=== PATIENT | female | born 1985 | race Caucasian/White ===

== ENCOUNTER 2020-06-17 20:35 | Emergency (ER) | payer OTHER ==
[2020-06-17 22:42] LABS: Absolute Lymphocytes (CBC) 4.1 K/uL (0.7-4.9); Basophils % 0.9 % (0-1.3); Hematocrit 39.9 % (36.0-45.0); Lymphocytes % 27.7 % (15.3-44.8); MPV 8.1 fL (7.6-11.3); RBC Red Blood Cell Count 4.73 M/uL (3.86-4.86)
[2020-06-17 22:59] LABS: Protime INR 0.92
[2020-06-17 23:15] LABS: ALT/SGPT 13 U/L (12-78); AST/SGOT 10 U/L (15-37); Albumin 3.7 g/dL (3.4-5.0); Alkaline Phosphatase 82 U/L (45-117); BUN Blood Urea Nitrogen 20 mg/dL (7-18); Bicarbonate 24 mmol/L (21-32); Bilirubin Total 0.3 mg/dL (0.2-1.0); Glucose Level 92 mg/dL (74-106); Potassium 3.9 mmol/L (3.5-5.1); Protein, Total 7.5 g/dL (6.4-8.2); Sodium Level 141 mmol/L (136-145); Troponin (Emerg Dept Use Only) < 0.02 ng/mL (0.0-0.045)
[2020-06-17] MEDS ORDERED: MORPHINE 4 MG/ML SYR ONE (23:49)
[2020-06-17] MEDS ORDERED: ONDANSETRON 4 MG/2 ML VIAL ONE (23:49)
--- NOTE | 2020-06-18 00:36 | ER ---
Nurse's Notes [facility] Name: Vivien Oviedo Age: 34 yrs Sex: Female : 1985 Arrival Date: 06/17/2020 Time: 20:39 Bed 25 Private MD: Diagnosis: Ocular pain, right eye;Unqualified visual loss, right eye, normal vision left eye Presentation: 06/17 20:44 Chief complaint: Patient states: Right eye redness, drainage since Wednesday. Seen by eye ll1 doctor today, sent for further eval. Coronavirus screen: Patient denies a cough. Patient denies shortness of breath or difficulty breathing. Patient denies measured and/or subjective temperature greater than 100.4F prior to today's visit. Patient denies travel on a cruise ship or to a country the [facility] currently lists as an affected area. Patient denies contact with known and/or suspected case of COVID-19. Proceed with normal triage. Ebola Screen: Patient denies travel to an Ebola-affected area in the 21 days before illness onset. Mechanism of Injury: No Mechanism of Injury. The patient denies any loss of vision. Initial Sepsis Screen: Does the patient meet any 2 criteria? No. Patient's initial sepsis screen is negative. Risk Assessment: Do you want to hurt yourself or someone else? Patient reports no desire to harm self or others. Onset of symptoms was June 14, 2020. 20:44 Method Of Arrival: Ambulatory ll1 20:44 Acuity: DIAMANTE 3 ll1 21:00 Initial Sepsis Screen: Does the patient have a suspected source of infection? No. vc Patient's initial sepsis screen is negative. [employer]: 21:00 LMP N/A - Tubes tied. vc Historical: - Allergies: 20:43 No Known Allergies; ll1 - Home Meds: 22:42 gabapentin 300 mg oral cap 1 cap 3 times per day [Active]; divalproex 500 mg oral Tb24 vc 1 tab twice a day for Depression associated with Bipolar Disorder [Active]; sertraline 100 mg oral tab 1 tab once daily [Active]; - PMHx: 20:43 Bipolar disorder; Depression; ll1 22:43 Seizures; (stated with high fever); vc - PSHx: 20:43 Appendectomy; ; ll1 - Immunization history:: Flu vaccine is not up to date. - Social history:: Smoking status: Patient reports the use of cigarette tobacco products, smokes one-half pack cigarettes per day, Patient/guardian denies using alcohol, street drugs. Screenin:00 Abuse screen: Denies threats or abuse. Nutritional screening: No deficits noted. vc Tuberculosis screening: No symptoms or risk factors identified. Fall Risk None identified. Assessment: 20:55 General: Appears in no apparent distress. uncomfortable, Behavior is calm, cooperative, vc appropriate for age. Pain: Complains of pain in right eye Pain does not radiate. Pain currently is 8 out of 10 on a pain scale. Quality of pain is described as sharp, squeezing, Pain began 2-3 days ago. Is continuous, Alleviated by cold application. Neuro: Level of Consciousness is awake, alert, obeys commands, Oriented to person, place, time, situation, Appropriate for age. Neuro: Reports. Cardiovascular: Capillary refill < 3 seconds Patient's skin is warm and dry. Cardiovascular: Reports. Respiratory: Airway is patent Respiratory effort is even, unlabored, Respiratory pattern is regular, symmetrical. GI: No signs and/or symptoms were reported involving the gastrointestinal system. : No signs and/or symptoms were reported regarding the genitourinary system. EENT: Eyes Sclera/Cornea are reddened in outer aspect of conjuctiva of right eye, iris of right eye and inner aspect of conjuctiva of right eye Reports blindness and pain to right eye. 22:00 Reassessment: Patient appears in no apparent distress at this time. Patient and/or vc family updated on plan of care and expected duration. Pain level reassessed. Patient is alert, oriented x 3, equal unlabored respirations, skin warm/dry/pink. Patient states symptoms have not improved. 22:30 Reassessment: Patient states on night she started to swell up, "my feet looked vc like I was 9 months ." ER provider notified. No signs of swelling noted at this time. 23:00 Reassessment: Patient appears in no apparent distress at this time. Patient and/or vc family updated on plan of care and expected duration. Pain level reassessed. Patient is alert, oriented x 3, equal unlabored respirations, skin warm/dry/pink. Patient states symptoms have not improved. 23:43 Reassessment: Patient returned from CT via wheelchair. vc 06/18 02:13 Reassessment: report called to Lauren MCKEON at [facility] ED. bb 02:44 Reassessment: [facility] HERE TO TRANSFER PATIENT TO [facility], PATIENT ALERT AND vc ORIENTED, AMBULATORY TO STRETCHER. Vital Signs: 06/17 20:44 BP 123 / 72; Pulse 88; Resp 18; Temp 98.4; Pulse Ox 96% ; Pain 9/10; ll1 22:30 BP 118 / 96; Pulse 89; Resp 18; Pulse Ox 97% on R/A; vc 23:00 BP 113 / 92; Pulse 86; Resp 18; Pulse Ox 100% on R/A; vc 06/18 00:00 BP 116 / 70; Pulse 82; Resp 19; Pulse Ox 97% on R/A; vc 01:00 BP 114 / 64; Pulse 82; Resp 19; Pulse Ox 98% ; vc ED Course: 06/17 20:39 Patient arrived in ED. cl3 20:44 Arm band placed on Patient placed in an exam room, on a stretcher. ll1 20:46 Triage completed. ll1 20:50 Beti Tavarez, LINDA is Primary Nurse. vc 21:00 Patient has correct armband on for positive identification. Call light in reach. Pulse vc ox on. NIBP on. 21:16 Davis Collins PA is PHCP. [facility] 21:16 Jacob Almaguer MD is Attending Physician. [facility] 06/18 00:01 CT Head Brain wo Cont In Process Unspecified. EDMS 00:02 Orbits W/Cont In Process Unspecified. EDMS 01:25 initiated transfer with [facility] spike with Charu Chappell. mw2 01:57 transfer accepted to [facility] ER by Charu Chappell. Accepting Dr. Gamino. mw2 02:43 No provider procedures requiring assistance completed. Patient transferred, IV remains vc in place. Administered Medications: 06/17 23:55 Drug: morphine 4 mg Route: IVP; Site: left antecubital; vc 06/18 01:39 Follow up: Response: No adverse reaction; Pain is decreased vc 06/17 23:55 Drug: Zofran (Ondansetron) 4 mg Route: IVP; Site: left antecubital; vc 06/18 01:39 Follow up: Response: No adverse reaction vc 01:39 Drug: Thurston 10 mg-325 mg 1 tabs Route: PO; vc 01:40 Follow up: Response: No adverse reaction vc Outcome: 00:35 Discharge ordered by MD. archer 02:03 ER care complete, transfer ordered by MD. archer 02:43 Transferred by ground EMS to [facility]. 02:43 Condition: good 02:43 Instructed on the need for transfer. 02:45 Patient left the ED. vc Signatures: Dispatcher [employer] EDMS Davis Collins PA PA jmm Ballard, Brenda, RN RN Edwardo Vasquez2 Tamara Dozier cl3 Beti Tavarez RN RN vc Lewis, Lynsay, RN RN ll1 Corrections: (The following items were deleted from the chart) 02:11 01:25 initiated transfer with [facility] spike with Charu lucas2 mw2
--- NOTE | 2020-06-18 00:36 | EDPHYS ---
Physician Documentation [facility] Name: Vivien Oviedo Age: 34 yrs Sex: Female : 1985 Arrival Date: 06/17/2020 Time: 20:39 Bed 25 Private MD: ED Physician Jacob Almaguer HPI: 06/17 21:18 This 34 yrs old Female presents to ER via Ambulatory with complaints of Eye jmm Pain. 21:18 The patient is experiencing double vision, pain. Onset: The symptoms/episode jmm began/occurred gradually, 1.5 week(s) ago. Duration: the symptoms are continuous. Aggravated by nothing. Alleviated by nothing. The patient has not experienced similar symptoms in the past. This is a 34 year old female with a history of bipolar depression, epilepsy that presents to the ED with complaints of right eye pain with vision loss. Patient states the eye irritation began this past Wednesday with increased pain beginning yesterday. Patient states she awoke this morning with complete vision loss to the right eye. Patient was evaluated by opthalmology (Dr. Chris Pagan) whom recommended further evaluation at [facility]. Patient also complains of a right sided headache which began approx 1.5 weeks ago. . DIE REAMER: 21:00 LMP N/A - Tubes tied. vc Historical: - Allergies: 20:43 No Known Allergies; ll1 - Home Meds: 22:42 gabapentin 300 mg oral cap 1 cap 3 times per day [Active]; divalproex 500 mg oral Tb24 vc 1 tab twice a day for Depression associated with Bipolar Disorder [Active]; sertraline 100 mg oral tab 1 tab once daily [Active]; - PMHx: 20:43 Bipolar disorder; Depression; ll1 22:43 Seizures; (stated with high fever); vc - PSHx: 20:43 Appendectomy; ; ll1 - Immunization history:: Flu vaccine is not up to date. - Social history:: Smoking status: Patient reports the use of cigarette tobacco products, smokes one-half pack cigarettes per day, Patient/guardian denies using alcohol, street drugs. ROS: 21:18 Constitutional: Negative for fever, chills, and weight loss, Cardiovascular: Negative jmm for chest pain, palpitations, and edema, Respiratory: Negative for shortness of breath, cough, wheezing, and pleuritic chest pain. 21:18 Eyes: Positive for itching, pain. 21:18 Neuro: Positive for headache. 21:18 All other systems are negative. Exam: 21:18 Constitutional: This is a well developed, well nourished patient who is awake, alert, jmm and in no acute distress. Head/Face: atraumatic. 21:18 ENT: Moist Mucus Membranes Neck: Trachea midline, Supple Chest/axilla: Normal chest wall appearance and motion. Cardiovascular: Regular rate and rhythm. No edema appreciated Respiratory: Normal respirations, no respiratory distress appreciated Abdomen/GI: Non distended, soft Back: Normal ROM Skin: General appearance color normal MS/ Extremity: Moves all extremities, no obvious deformities appreciated, no edema noted to the lower extremities Neuro: Awake and alert, normal gait Psych: Behavior is normal, Mood is normal, Patient is cooperative and pleasant 21:18 Eyes: Conjunctiva: injected, in the right eye. 21:18 Eyes: Extraocular movements: intact throughout, Visual byrd: Vital Signs: 20:44 BP 123 / 72; Pulse 88; Resp 18; Temp 98.4; Pulse Ox 96% ; Pain 9/10; ll1 22:30 BP 118 / 96; Pulse 89; Resp 18; Pulse Ox 97% on R/A; vc 23:00 BP 113 / 92; Pulse 86; Resp 18; Pulse Ox 100% on R/A; vc 06/18 00:00 BP 116 / 70; Pulse 82; Resp 19; Pulse Ox 97% on R/A; vc 01:00 BP 114 / 64; Pulse 82; Resp 19; Pulse Ox 98% ; vc MDM: 06/17 21:18 Patient medically screened. [facility] 06/18 00:33 Data reviewed: vital signs, nurses notes. Counseling: I had a detailed discussion with [facility] the patient and/or guardian regarding: the historical points, exam findings, and any diagnostic results supporting the discharge/admit diagnosis, lab results, radiology results, the need to transfer to another facility, for higher level of care, [facility] does not immediately have the required specialist. Refusal of service: The patient/guardian displays adequate decision making capability and despite a detailed discussion of alternatives, benefits, risks, and consequences refuses: Admission to the hospital for further work-up and treatment. ED course: Patient was advised not being transferred could result in permanent blindness to the right eye. Patient appears able to make rational decisions. . 01:46 ED course: Patient reconsidered transfer. Dr. Dunne discussed the patient with Dr. gianni Watson whom accepted transfer. . 01:57 ED course: accepted by dr. Gamino. [facility] 06/17 21:41 Order name: CBC with Diff; Complete Time: 22:49 [facility] 06/17 21:41 Order name: CMP; Complete Time: 23:27 [facility] 06/17 21:41 Order name: PT-INR; Complete Time: 23:06 [facility] 06/17 21:41 Order name: Troponin (emerg Dept Use Only); Complete Time: 23:27 [facility] 06/18 00:07 Order name: Urine Dipstick--Ancillary (enter results); Complete Time: 00:58 [facility] 06/18 00:07 Order name: Urine --Ancillary (enter results); Complete Time: 00:58 [facility] 06/17 21:41 Order name: Saline Lock; Complete Time: 22:33 [facility] 06/17 21:42 Order name: CT Head Brain wo Cont [facility] 06/17 21:46 Order name: Orbits W/Cont [facility] 06/17 22:50 Order name: Urine Test (obtain specimen); Complete Time: 00:05 [facility] Administered Medications: 06/17 23:55 Drug: morphine 4 mg Route: IVP; Site: left antecubital; vc 06/18 01:39 Follow up: Response: No adverse reaction; Pain is decreased 06/17 23:55 Drug: Zofran (Ondansetron) 4 mg Route: IVP; Site: left antecubital; vc 06/18 01:39 Follow up: Response: No adverse reaction vc 01:39 Drug: Kerrick 10 mg-325 mg 1 tabs Route: PO; vc 01:40 Follow up: Response: No adverse reaction vc Disposition: 03:51 Co-signature as Attending Physician, Jacob Almaguer MD. ma2 Disposition: 06/18/20 02:03 Transfer ordered to [facility]. Diagnosis are Ocular pain, right eye, Unqualified visual loss, right eye, normal vision left eye. - Reason for transfer: Higher level of care. - Accepting physician is Hanny. - Condition is Stable. - Problem is new. - Symptoms are unchanged. Signatures: Dispatcher [employer] EDMS Davis Collins PA PA jmm Alzahri, Mohammad, MD MD ma2 Beti Tavarez RN RN Nithya Wagoner RN RN ll1 Corrections: (The following items were deleted from the chart) 00:37 00:35 06/18/2020 00:35 Discharged to Home. Impression: Unqualified visual loss, right jmm eye, normal vision left eye; Ocular pain, right eye. Condition is Stable. Forms are Medication Reconciliation Form, Thank You Letter, Antibiotic Education, Prescription Opioid Use. Follow up: Private Physician; When: Upon discharge from the Emergency Department; Reason: Re-evaluation by your physician. gianni 02:45 02:03 06/18/2020 02:03 Transfer ordered to [facility]. Diagnosis is Ocular pain, right eye; Unqualified visual loss, right eye, normal vision left eye. Reason for transfer: Higher level of care. Accepting physician is Hanny. Condition is Stable. Problem is new. Symptoms are unchanged. gianni
[2020-06-18 00:52] LABS: Urine Blood 1+ (NEG); Urine Glucose NEGATIVE (NEG); Urine Protein NEGATIVE (NEG)
[2020-06-18] MEDS ORDERED: HYDROCODONE/APAP 10/325 TAB ONE (01:43)
[2020-06-18 02:59] VITALS: TEMP 98.4
[2020-06-18 03:03] VITALS: BP 114/64; O2SAT 98
--- NOTE | 2020-06-19 09:51 | RAD REPORT ---
EXAM DESCRIPTION: CT orbits with contrast CLINICAL HISTORY: Right eye redness, pain COMPARISON: None. TECHNIQUE: Orbits axial images acquired with IV contrast. Coronal and sagittal reformats created. Ex am performed according to departmental dose-optimization program which includes automated exposure co ntrol, adjustment of mA and/or kV according to patient size, and/or use of iterative reconstruction t echnique. FINDINGS: Orbits appear unremarkable. Both globes, optic nerves, and extraocular muscles appear intact. No orbital fracture. IMPRESSION: Unremarkable CT orbits with contrast. Electronically signed by: Dioni Wall MD 06/18/2020 12:15 AM CDT Due to temporary technical issues with the PACS/Fluency reporting system, reports are being signed by the in house radiologist without review as a courtesy to ensure prompt reporting. The interpreting r adiologist is fully responsible for the content of the report.
--- NOTE | 2020-06-19 09:53 | RAD REPORT ---
EXAM DESCRIPTION: CT Head Brain Wo Cont CLINICAL HISTORY: Visual loss COMPARISON: None. TECHNIQUE: Head/brain axial images acquired without contrast. Coronal and sagittal reformats created . Exam performed according to departmental dose-optimization program which includes automated exposur e control, adjustment of mA and/or kV according to patient size, and/or use of iterative reconstructi on technique. FINDINGS: No midline shift, mass effect, intracranial hemorrhage, or hydrocephalus. Brain parenchyma unremarkable. Paranasal sinuses and mastoid air cells clear. No skull fracture or significant skull lesion. IMPRESSION: Unremarkable CT head without contrast. Electronically signed by: Dioni Wall MD 06/18/2020 12:10 AM CDT Due to temporary technical issues with the PACS/Fluency reporting system, reports are being signed by the in house radiologist without review as a courtesy to ensure prompt reporting. The interpreting r adiologist is fully responsible for the content of the report.
== END 2020-06-18 02:45 | disposition short-term general hospital (02) ==
LOC: ER 20:35
DX: H54.61 Unqualified visual loss, right eye, normal vision left eye (principal); F17.210 Nicotine dependence, cigarettes, uncomplicated; F31.9 Bipolar disorder, unspecified
CPT/HCPCS: 85025; 36415; 81025; 85610; 81003; 84484; 80053; 70450; 70481; J2405; 96374; 96375; 99285